=== PATIENT | female | born 2000 | race African-American/Black ===

== ENCOUNTER 2018-04-08 19:44 | Emergency (ER) | payer SELFPAY ==
[~2018-04-08] VITALS: Ht 167.6 cm; Wt 61.4 kg
[2018-04-08 20:52] VITALS: BP 122/64
== END 2018-04-08 20:55 | disposition home or self-care (01) ==
LOC: EMS 19:46
DX: F41.9 Anxiety disorder, unspecified (principal); H02.89 Other specified disorders of eyelid; J45.909 Unspecified asthma, uncomplicated; Z76.0 Encounter for issue of repeat prescription
CPT/HCPCS: 99283

== ENCOUNTER 2018-05-28 12:00 | Emergency (ER) | payer OTHER ==
[~2018-05-28] VITALS: Ht 170.2 cm; Wt 61.4 kg
[2018-05-28] MEDS ORDERED: KETOROLAC TROMETHAMINE 60 MG/2 ML VIAL IM ONE (14:00)
[2018-05-28 14:22] VITALS: BP 107/91
== END 2018-05-28 14:25 | disposition home or self-care (01) ==
LOC: EMS 12:01
DX: M94.0 Chondrocostal junction syndrome [Tietze] (principal); J45.909 Unspecified asthma, uncomplicated
CPT/HCPCS: 93005; 96372; 99283; J1885

== ENCOUNTER 2018-09-13 21:17 | Emergency (ER) | payer OTHER ==
[~2018-09-13] VITALS: Ht 167.6 cm; Wt 65.9 kg
[2018-09-13] MEDS ORDERED: ACETAMINOPHEN 500 MG TABLET PO ONE (21:45)
[2018-09-13 21:51] LABS: APPEARANCE,URINE CLOUDY (CLEAR); BILIRUBIN,URINE NEGATIVE (NEGATIVE); GLUCOSE, URINE (UA) NEGATIVE (NEGATIVE); KETONES,URINE NEGATIVE (NEGATIVE); LEUKOCYTE ESTERASE ,URINE MODERATE (NEGATIVE); NITRATE,URINE NEGATIVE (NEGATIVE); OCCULT BLOOD,URINE MODERATE (NEGATIVE); PROTEIN,URINE NEGATIVE (NEGATIVE); UROBILINOGEN,URINE 0.2 mg/dL (<=1.0)
[2018-09-13 22:12] LABS: WBC,URINE 51-100 /HPF (0-5)
[2018-09-13 22:13] LABS: BACTERIA,URINE Few /HPF (None Seen); SQUAMOUS EPITHELIAL CELL,UR Few /LPF (None Seen)
[2018-09-13] MEDS ORDERED: NITROFURANTOIN/NITROFURAN MAC 100 MG CAPSULE [MACROBID] PO ONE (22:15)
[2018-09-13 23:15] VITALS: BP 124/71
== END 2018-09-13 23:28 | disposition home or self-care (01) ==
LOC: EMS 21:19
DX: N39.0 Urinary tract infection, site not specified (principal); J45.909 Unspecified asthma, uncomplicated
CPT/HCPCS: 87086